=== PATIENT | male | born 1955 | race Caucasian/White ===

== ENCOUNTER 2021-10-14 12:20 | Inpatient (IN) | payer OTHER ==
[~2021-10-14] VITALS: Ht 177.8 cm; Wt 82.3 kg
[2021-10-14] VITALS (14 sets, daily range): BP systolic 101–149; BP diastolic 67–85
[2021-10-14] MEDS ORDERED: ONDANSETRON HCL 4 MG/2 ML VIAL IV ONE (12:30)
[2021-10-14] MEDS ORDERED: HEPARIN SODIUM (PORCINE) 5000 UNITS/ML 1ML VIAL IV ONE (12:30)
[2021-10-14] MEDS ORDERED: MORPHINE SULFATE 4 MG/ML SYR/VIAL IV ONE (12:30)
[2021-10-14] MEDS ORDERED: LIDOCAINE 2%HCL (LOCAL ANESTH.) INJ 20ML MDV ONE (12:33)
[2021-10-14] MEDS ORDERED: IODIXANOL 320MG/ML 100ML BTL IV ONE (12:33)
[2021-10-14] MEDS ORDERED: ANGIOMAX 250 MG VIAL IV ONE (12:36)
[2021-10-14] MEDS ORDERED: VERAPAMIL 2.5MG/ML INJ 2ML VIAL IV ONE (12:36)
[2021-10-14] MEDS ORDERED: MIDAZOLAM HCL 2MG/2ML 2ml VIAL (1mg/ml) ONE (12:37)
[2021-10-14] MEDS ORDERED: fentaNYL CITRATE 100 MCG/2 ML VL ONE (12:37)
[2021-10-14] MEDS ORDERED: SODIUM CHL 0.9% 50 ML ONE (12:37)
[2021-10-14 12:52] LABS: Basophils # (auto) 0.2 10 ^3/uL (0-0.2); Basophils % (auto) 1.1 % (0.0-2.0); Eosinophils # (auto) 0.1 10 ^3/uL (0-0.8); Eosinophils % (auto) 0.7 % (0.0-7.0); Hemoglobin 16.8 g/dL (13.5-17.5); Lymphocytes # (auto) 2.7 10 ^3/uL (0.4-5.4); Lymphocytes % (auto) 16.5 % (10.0-50.0); Mean Corpuscular Hemoglobin 31.7 pg (28.0-32.0); Mean Corpuscular Hgb Conc. 34.3 g/dL (32.0-36.0); Mean Corpuscular Volume 92.4 fL (80.0-100.0); Monocytes # (auto) 1.3 10 ^3/uL (0-1.3); Monocytes % (auto) 8.2 % (0.0-12.0); Neutrophils % (auto) 73.5 % (37.0-80.0); Red Cell Distribution Width 12.9 % (11.8-14.3); White Blood Cell 16.3 10^3/uL (4.4-10.8)
[2021-10-14] MEDS ORDERED: IOHEXOL 350 MG/ML 100ML IJ ONE ×2 (12:58→13:04)
[2021-10-14 12:59] LABS: INR 1.01 (0.9-1.15); Partial Thromboplastin Time 28.9 sec (23.6-33.0)
[2021-10-14] MEDS ORDERED: ASPirin 81 mg TAB PO ONE (13:00)
[2021-10-14 13:01] LABS: Albumin 4.3 g/dL (3.4-5.0); Calcium 9.9 mg/dL (8.5-10.1); Potassium 3.7 mmol/L (3.5-5.1)
[2021-10-14 13:04] LABS: BUN/Creatinine Ratio 5.8
[2021-10-14 13:08] LABS: Bilirubin, Total 1.5 mg/dL (0.2-1.0)
[2021-10-14] MEDS ORDERED: TICAGRELOR 90 MG TAB ONE (13:58)
[2021-10-14] MEDS ORDERED: ASPirin 81 mg TAB ONE (13:58)
[2021-10-14] MEDS ORDERED: NITROGLYCERIN 0.4 MG SL TAB SL PRN (14:30)
[2021-10-14] MEDS ORDERED: MORPHINE SULFATE INJECTION 2 MG/ML SYRG IV PRN (14:30)
[2021-10-14] MEDS: ATORVASTATIN 20 MG TAB PO SCH (18:35)
[2021-10-14] MEDS: CARVEDILOL 3.125 MG TAB PO SCH ×2 (18:36→21:36)
[2021-10-14] MEDS: TICAGRELOR 90 MG TAB PO SCH (21:36)
[2021-10-15] VITALS (8 sets, daily range): BP systolic 106–142; BP diastolic 72–96
[2021-10-15] MEDS ORDERED: ASPI1TAB20 PO (00:32)
[2021-10-15] MEDS ORDERED: AMLO-489 PO (00:32)
[2021-10-15] MEDS ORDERED: LOSA-69 PO (00:32)
[2021-10-15] MEDS ORDERED: ONDANSETRON HCL 4 MG/2 ML VIAL IV PRN (01:00)
[2021-10-15] MEDS ORDERED: hydrALAZINE HCL 20 MG/ML VL IV PRN (01:00)
[2021-10-15] MEDS ORDERED: HYDROcodone-ACET 5/325MG TAB PO PRN (01:00)
[2021-10-15] MEDS ORDERED: LORazepam 2MG/ML-1ML VIAL IV ONE (01:00)
[2021-10-15] MEDS ORDERED: ACETAMINOPHEN 325 MG TAB PO PRN (01:00)
[2021-10-15 05:14] LABS: Basophils # (auto) 0.1 10 ^3/uL (0-0.2); Basophils % (auto) 1.2 % (0.0-2.0); Eosinophils # (auto) 0.1 10 ^3/uL (0-0.8); Eosinophils % (auto) 0.9 % (0.0-7.0); Hematocrit 45.1 % (41.0-53.0); Hemoglobin 15.3 g/dL (13.5-17.5); Lymphocytes # (auto) 2.5 10 ^3/uL (0.4-5.4); Lymphocytes % (auto) 21.9 % (10.0-50.0); Mean Corpuscular Hemoglobin 31.5 pg (28.0-32.0); Mean Corpuscular Hgb Conc. 33.9 g/dL (32.0-36.0); Mean Corpuscular Volume 92.9 fL (80.0-100.0); Monocytes # (auto) 1.5 10 ^3/uL (0-1.3); Monocytes % (auto) 12.8 % (0.0-12.0); Neutrophils # (auto) 7.2 10 ^3/uL (1.6-8.6); Neutrophils % (auto) 63.2 % (37.0-80.0); Nucleated Red Blood Cells % 0.1 %; Red Blood Cells 4.86 10^6/uL (4.5-5.90); Red Cell Distribution Width 12.9 % (11.8-14.3); White Blood Cell 11.4 10^3/uL (4.4-10.8)
[2021-10-15 05:41] LABS: Albumin 3.6 g/dL (3.4-5.0); BUN/Creatinine Ratio 9.7; Calcium 9.3 mg/dL (8.5-10.1)
[2021-10-15 05:44] LABS: Bilirubin, Total 1.5 mg/dL (0.2-1.0); Total Protein 6.9 g/dL (6.4-8.2)
[2021-10-15] MEDS: TICAGRELOR 90 MG TAB PO SCH ×2 (10:35→21:40)
[2021-10-15] MEDS: CARVEDILOL 3.125 MG TAB PO SCH ×2 (10:36→23:00)
[2021-10-15] MEDS: ASPirin 81 mg TAB PO SCH (10:36)
[2021-10-15] MEDS: ATORVASTATIN 20 MG TAB PO SCH (10:36)
[2021-10-15] MEDS ORDERED: FUROSEMIDE 40 MG/4 ML VIAL IV ONE (13:15)
[2021-10-15] MEDS: IPRATROPIUM BROM 0.5 MG/2.5ML INH SOL NEB PRN ×2 (15:00→19:37)
[2021-10-16 01:50] LABS: INR 1.05 (0.9-1.15); Partial Thromboplastin Time 30.3 sec (23.6-33.0)
[2021-10-16 02:34] LABS: Alcohol, Urine < 3.0 mg/dL (0-10); Amphetamine Screen, Urine NEGATIVE (NEGATIVE); Barbiturate Scree,Urine NEGATIVE (NEGATIVE); Benzodiazephine Screen, Urine POSITIVE (NEGATIVE); Cannabinoid Screen, Urine POSITIVE (NEGATIVE); Cocaine Screen, Urine NEGATIVE (NEGATIVE); Opiate Scree,Urine NEGATIVE (NEGATIVE); Phencyclidine Screen, Urine NEGATIVE (NEGATIVE)
[2021-10-16 02:53] LABS: Urine Bacteria NONE SEEN /hpf (None Seen); Urine Blood Negative /uL (Negative); Urine Hyaline Cast FEW /lpf (0 - 2); Urine Mucus FEW (None Seen); Urine Specific Gravity 1.019 (1.001-1.035); Urine WBC <1 /hpf (0 - 3)
[2021-10-16 05:00] VITALS: BP 115/76
[2021-10-16 05:56] LABS: Basophils # (auto) 0.1 10 ^3/uL (0-0.2); Basophils % (auto) 0.8 % (0.0-2.0); Eosinophils # (auto) 0.1 10 ^3/uL (0-0.8); Hematocrit 45.5 % (41.0-53.0); Hemoglobin 15.9 g/dL (13.5-17.5); Lymphocytes # (auto) 2.2 10 ^3/uL (0.4-5.4); Lymphocytes % (auto) 20.3 % (10.0-50.0); Mean Corpuscular Hemoglobin 32.6 pg (28.0-32.0); Monocytes # (auto) 1.4 10 ^3/uL (0-1.3); Monocytes % (auto) 13.2 % (0.0-12.0); Neutrophils % (auto) 64.7 % (37.0-80.0); Red Blood Cells 4.89 10^6/uL (4.5-5.90); Red Cell Distribution Width 12.9 % (11.8-14.3); White Blood Cell 10.8 10^3/uL (4.4-10.8)
[2021-10-16 06:12] LABS: Calcium 9.2 mg/dL (8.5-10.1); Potassium 3.5 mmol/L (3.5-5.1)
[2021-10-16] MEDS ORDERED: ANGIOMAX 250 MG VIAL IV ONE (07:26)
[2021-10-16] MEDS ORDERED: HEPARIN SODIUM (PORCINE) 5000 UNITS/ML 1ML VIAL ONE (07:26)
[2021-10-16] MEDS ORDERED: VERAPAMIL 2.5MG/ML INJ 2ML VIAL IV ONE (07:26)
[2021-10-16] MEDS ORDERED: IODIXANOL 320MG/ML 100ML BTL IV ONE (07:27)
[2021-10-16] MEDS ORDERED: LIDOCAINE 2%HCL (LOCAL ANESTH.) INJ 10ml MDV ONE (07:27)
[2021-10-16] MEDS ORDERED: MIDAZOLAM HCL 2MG/2ML 2ml VIAL (1mg/ml) ONE (07:27)
[2021-10-16] MEDS ORDERED: fentaNYL CITRATE 100 MCG/2 ML VL ONE (07:27)
[2021-10-16] MEDS ORDERED: SODIUM CHL 0.9% 50 ML ONE (07:27)
[2021-10-16] MEDS ORDERED: diphenhdrAMINE HCL 50 MG/1 ML VL ONE (07:37)
[2021-10-16] MEDS ORDERED: ASPirin 81 mg TAB ONE (07:54)
[2021-10-16] MEDS ORDERED: TICAGRELOR 90 MG TAB ONE (07:55)
[2021-10-16] MEDS: ASPirin 81 mg TAB PO SCH (08:13)
[2021-10-16] MEDS: TICAGRELOR 90 MG TAB PO SCH ×2 (08:13→22:18)
[2021-10-16 09:30] VITALS: BP 133/97
[2021-10-16] MEDS: CARVEDILOL 3.125 MG TAB PO SCH ×2 (10:18→22:19)
[2021-10-16] MEDS: IPRATROPIUM BROM 0.5 MG/2.5ML INH SOL NEB PRN (11:47)
[2021-10-16 13:55] VITALS: BP 122/76
[2021-10-16] MEDS ORDERED: LORazepam 0.5 MG TAB PO PRN (16:30)
[2021-10-16 17:00] VITALS: BP 127/74
[2021-10-16 22:00] VITALS: BP 125/77
[2021-10-16] MEDS ORDERED: ATORVASTATIN 20 MG TAB PO SCH (22:00)
[2021-10-17 05:00] VITALS: BP 116/68
[2021-10-17 09:00] VITALS: BP 111/63
[2021-10-17] MEDS: ASPirin 81 mg TAB PO SCH (09:55)
[2021-10-17] MEDS: CARVEDILOL 3.125 MG TAB PO SCH (09:55)
[2021-10-17] MEDS: TICAGRELOR 90 MG TAB PO SCH (09:56)
[2021-10-17] MEDS ORDERED: CAR3125T PO (11:27)
[2021-10-17] MEDS ORDERED: TICA90TA PO (11:27)
[2021-10-17] MEDS ORDERED: ATOR20TA50 PO (11:27)
[2021-10-17] MEDS ORDERED: ASPI1TAB20 PO (11:27)
[2021-10-17] MEDS ORDERED: GUAI100S6 PO (11:51)
[2021-10-17 13:00] VITALS: BP 169/97
[2021-10-17 14:12] VITALS: BP 169/97
== END 2021-10-17 15:35 | disposition home or self-care (01) | DRG 246 ==
LOC: EDSEX 12:20 → ER 12:20 → EDBD 12:20 → TELE 14:26 → DOU IN ICU 17:30 → TELE-EAST 10-15 14:53
PROVIDERS: ADMIT Internal Medicine; ATTEND Internal Medicine
PROC: 4A023N7 Measurement of Cardiac Sampling and Pressure, Left Heart, Percutaneous Approach (ICD-10-PCS; principal; 2021-10-14)
PROC: 027034Z Dilation of Coronary Artery, One Artery with Drug-eluting Intraluminal Device, Percutaneous Approach (ICD-10-PCS; 2021-10-14)
PROC: B211YZZ Fluoroscopy of Multiple Coronary Arteries using Other Contrast (ICD-10-PCS; 2021-10-14)
PROC: 027034Z Dilation of Coronary Artery, One Artery with Drug-eluting Intraluminal Device, Percutaneous Approach (ICD-10-PCS; 2021-10-16)
PROC: 4A023N7 Measurement of Cardiac Sampling and Pressure, Left Heart, Percutaneous Approach (ICD-10-PCS; 2021-10-16)
PROC: B210YZZ Fluoroscopy of Single Coronary Artery using Other Contrast (ICD-10-PCS; 2021-10-16)
DX: I21.19 ST elevation (STEMI) myocardial infarction involving other coronary artery of inferior wall (principal); I50.21 Acute systolic (congestive) heart failure; R65.10 Systemic inflammatory response syndrome (SIRS) of non-infectious origin without acute organ dysfunction; I10 Essential (primary) hypertension; Z72.0 Tobacco use; I25.10 Atherosclerotic heart disease of native coronary artery without angina pectoris; F12.10 Cannabis abuse, uncomplicated; F10.10 Alcohol abuse, uncomplicated; Z20.822 Contact with and (suspected) exposure to COVID-19
CPT/HCPCS: 36415; 71045; 71275; 80048; 80053; 80061; 80307; 81001; 83735; 84484; 85025; 85610; 85730; 86850; 86900; 86901; 87081; 92928; 93005; 93306; 93458; 94640; 96374; 96375; 99152; 99153; 99291; C1874; C1887; G0378; J2001; J2250; J2405; Q9967

== ENCOUNTER 2023-12-10 09:50 | Emergency (ER) | payer OTHER ==
[~2023-12-10] VITALS: Ht 180.3 cm; Wt 86.3 kg
[~2023-12-10 09:50] MED LIST: ASPI1TAB20 PO; ATOR20TA50 PO; CARV-214 PO; GUAI100S6 PO; LOSA-534 PO; TICA90TA PO
[2023-12-10 10:33] LABS: Basophils # (auto) 0.1 10 ^3/uL (0-0.2); Basophils % (auto) 0.9 % (0.0-2.0); Eosinophils # (auto) 0.1 10 ^3/uL (0-0.8); Eosinophils % (auto) 0.9 % (0.0-7.0); Hematocrit 38.1 % (41.0-53.0); Hemoglobin 13.6 g/dL (13.5-17.5); Lymphocytes # (auto) 1.7 10 ^3/uL (0.4-5.4); Lymphocytes % (auto) 16.3 % (10.0-50.0); Mean Corpuscular Hemoglobin 33.6 pg (28.0-32.0); Mean Corpuscular Hgb Conc. 35.8 g/dL (32.0-36.0); Mean Corpuscular Volume 93.7 fL (80.0-100.0); Monocytes # (auto) 1.2 10 ^3/uL (0-1.3); Monocytes % (auto) 11.5 % (0.0-12.0); Neutrophils # (auto) 7.4 10 ^3/uL (1.6-8.6); Neutrophils % (auto) 70.4 % (37.0-80.0); Red Blood Cells 4.07 10^6/uL (4.5-5.90); Red Cell Distribution Width 13.7 % (11.8-14.3); White Blood Cell 10.6 10^3/uL (4.4-10.8)
[2023-12-10 10:34] LABS: Chloride 98 mmol/L (98-107); Sodium 130 mmol/L (136-145)
[2023-12-10 10:35] LABS: Calcium 9.5 mg/dL (8.5-10.1)
[2023-12-10] MEDS: ONDANSETRON HCL 4 MG/2 ML VIAL IV ONE (10:37)
[2023-12-10] MEDS: MORPHINE SULFATE 4 MG/ML SYR/VIAL IV ONE (10:38)
[2023-12-10 10:40] LABS: BUN/Creatinine Ratio 7.4 (10.0-20.0); Blood Urea Nitrogen 7 mg/dL (9-23); Glucose 103 mg/dL (74-106)
[2023-12-10 10:59] VITALS: PULSE 82; RESP 20; O2SAT 99
[2023-12-10 11:55] LABS: Anion Gap 8 (5-15); Carbon Dioxide 24 mmol/L (20-30)
[2023-12-10] MEDS: KETOROLAC TROMETH 30 MG/ML 1ML VIAL IV ONE (12:17)
[2023-12-10 13:00] VITALS: TEMP 98
[2023-12-10 14:00] VITALS: BP 132/76; PULSE 73; RESP 15; O2SAT 94
[2023-12-10] MEDS ORDERED: HYDR-4902 PO (14:00)
== END 2023-12-10 14:06 | disposition home or self-care (01) ==
LOC: ER 09:50 → EDBD 09:50 → ER 14:06
DX: S20.212A Contusion of left front wall of thorax, initial encounter (principal); J44.9 Chronic obstructive pulmonary disease, unspecified; I10 Essential (primary) hypertension; E78.5 Hyperlipidemia, unspecified; I25.2 Old myocardial infarction; F17.210 Nicotine dependence, cigarettes, uncomplicated; F12.10 Cannabis abuse, uncomplicated; Z90.49 Acquired absence of other specified parts of digestive tract; Z98.61 Coronary angioplasty status; Z90.89 Acquired absence of other organs; Z79.899 Other long term (current) drug therapy; W18.30XA Fall on same level, unspecified, initial encounter; Y93.89 Activity, other specified; Y92.89 Other specified places as the place of occurrence of the external cause; Y99.8 Other external cause status
CPT/HCPCS: 36415; 71101; 80048; 84484; 85025; 93005; 96374; 96375; 99285; J1885; J2270; J2405